=== PATIENT | female | born 1940 | race Caucasian/White ===

== ENCOUNTER 2017-10-08 10:23 | Emergency (ER) | payer MEDICARE, BC | END 2017-10-08 13:13 | disposition home or self-care (01) | LOC: ERS 10:23 | DX: R11.2 Nausea with vomiting, unspecified (principal); I48.91 Unspecified atrial fibrillation; E03.9 Hypothyroidism, unspecified; K21.9 Gastro-esophageal reflux disease without esophagitis; I10 Essential (primary) hypertension; M19.90 Unspecified osteoarthritis, unspecified site; Z79.01 Long term (current) use of anticoagulants; Z79.899 Other long term (current) drug therapy | CPT/HCPCS: 99284 ==

== ENCOUNTER 2023-11-05 15:00 | Outpatient (CLI) | payer MEDICARE, BC | END 2023-11-05 15:01 | disposition home or self-care (01) | LOC: RAD 15:00 | PROVIDERS: ATTEND Internal Medicine Cardiovascular Disease | DX: I48.0 Paroxysmal atrial fibrillation (principal); R91.8 Other nonspecific abnormal finding of lung field | CPT/HCPCS: 71046 ==